=== PATIENT | female | born 2000 | race Caucasian/White ===

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

== ENCOUNTER 2018-02-10 20:37 | Emergency (ER) | END 2018-02-10 22:43 | disposition home or self-care (01) ==

== ENCOUNTER 2018-06-11 13:29 | Emergency (ER) | END 2018-06-11 15:17 | disposition left against medical advice (07) ==